=== PATIENT | female | born 1960 | race Caucasian/White ===

== ENCOUNTER → 2020-04-30 | Outpatient (CLI) | payer OTHER ==
[~2020-04-30] MED LIST: COVID-19 VACC, MRNA(MODERNA)/PF 100 MCG/0.5 ML VIAL IM ONE
== END ==
LOC: VACCPMC 16:15
DX: Z23 Encounter for immunization (principal); Z20.822 Contact with and (suspected) exposure to COVID-19

== ENCOUNTER → 2020-05-29 | Outpatient (CLI) | payer OTHER | LOC: VACCPMC 09:36 | DX: Z23 Encounter for immunization (principal); Z20.822 Contact with and (suspected) exposure to COVID-19 | CPT/HCPCS: 0012A; 91301 ==

== ENCOUNTER 2021-06-21 18:05 | Observation (INO) | payer BC, OTHER ==
[~2021-06-21] VITALS: Ht 162.6 cm; Wt 136.1 kg
[2021-06-21 18:39] LABS: BASOPHILS # (AUTO) 0.1 (0.0-0.1); BASOPHILS % 0.8 % (0.0-1.0); EOSINOPHILS # (AUTO) 0.2 (0.0-0.4); EOSINOPHILS % 2.4 % (0.0-6.0); HEMATOCRIT 46.2 % (34.2-44.1); LYMPHOCYTES # (AUTO) 2.2 (1.0-3.2); LYMPHOCYTES % 33.8 % (18.0-39.1); MEAN CORPUSCULAR HEMOGLOBIN 30.3 pg (28-32); MEAN CORPUSCULAR HGB CONC 32.5 g/dL (31-35); MEAN CORPUSCULAR VOLUME 93.3 fL (81-99); MONOCYTES # (AUTO) 0.7 (0.2-0.8); MONOCYTES % 11.3 % (4.4-11.3); NEUTROPHILS # (AUTO) 3.4 (2.1-6.9); NEUTROPHILS % 51.4 % (38.7-80.0); PLATELET COUNT 213 x10e3/uL (140-360); RED BLOOD COUNT 4.95 x10e6/uL (3.6-5.1); RED CELL DISTRIBUTION WIDTH 13.9 % (11.7-14.4)
[2021-06-21 18:57] LABS: ALBUMIN 4.2 g/dL (3.5-5.0); ALBUMIN/GLOBULIN RATIO 1.2 (0.8-2.0); ANION GAP 17.7 mmol/L (8-16); CALCIUM 9.9 mg/dL (8.4-10.2); CREATININE, SERUM 0.74 mg/dL (0.57-1.11); POTASSIUM 3.7 mmol/L (3.5-5.1)
[2021-06-21] MEDS ORDERED: ASPIRIN 81 MG CHEW TAB PO ONE (20:00)
[2021-06-21] MEDS ORDERED: ASPIRIN 81 MG CHEW TAB ONE (20:14)
[2021-06-21] MEDS ORDERED: TRAMADOL HCL 50 MG TAB PO PRN (20:45)
[2021-06-21 20:48] VITALS: BP 141/93
[2021-06-21 21:00] VITALS: BP 141/93
[2021-06-21 22:29] LABS: CREATINE KINASE 62 IU/L (29-168)
[2021-06-21] MEDS ORDERED: AMBIEN10 MG PO (22:50)
[2021-06-21] MEDS ORDERED: HYDROCHLOROTHIA25 MG (22:50)
[2021-06-21] MEDS ORDERED: MELOXICAM15 MG PO (22:50)
[2021-06-21] MEDS ORDERED: LISINOPRIL10 MG PO (22:50)
[2021-06-21] MEDS ORDERED: FENOFIBRATE160 MG PO (22:50)
[2021-06-21] MEDS ORDERED: ZOLPIDEM TARTRATE 10 MG TAB PO SCH (23:00)
[2021-06-22] VITALS (13 sets, daily range): BP systolic 115–161; BP diastolic 46–77
[2021-06-22 06:20] LABS: CREATINE KINASE MB 0.8 ng/mL (0-5.0)
[2021-06-22] MEDS ORDERED: MIDAZOLAM HCL 2 MG/2 ML VIAL ONE ×2 (07:42→07:58)
[2021-06-22] MEDS ORDERED: VERAPAMIL HCL 2.5 MG/ML 2 ML VIAL ONE (07:42)
[2021-06-22] MEDS ORDERED: SODIUM CHLORIDE 0.9% 1000ML 1,000 ML ONE (07:43)
[2021-06-22] MEDS ORDERED: FENTANYL CITRATE/PF 100MCG/2 ML INJ ONE (07:43)
[2021-06-22] MEDS ORDERED: IOPAMIDOL 370 MG/ML 200 ML INFUS..BTL INJ ONE (07:43)
[2021-06-22] MEDS ORDERED: LIDOCAINE HCL 2% LOCAL 20 ML VIAL ONE (07:43)
[2021-06-22] MEDS ORDERED: HEPARIN SOD/SOD CHLORIDE 2,000 ML ONE (07:43)
[2021-06-22] MEDS ORDERED: ONDANSETRON HCL INJ 2MG/ML 2ML 2 MG/ML VIAL IV PRN (08:00)
[2021-06-22] MEDS ORDERED: ACETAMINOPHEN 325 MG TAB PO PRN (08:00)
[2021-06-22] MEDS ORDERED: Morphine 2mg Syringe 2 MG/ML SYR IV PRN (08:00)
[2021-06-22] MEDS ORDERED: ZOLPIDEM TARTRATE 5 MG TAB PO PRN (08:00)
[2021-06-22] MEDS ORDERED: HYDROCODONE/APAP 5MG-325MG TAB PO PRN (08:00)
[2021-06-22] MEDS ORDERED: Morphine 4mg Syringe 4 MG/ML INJ IV PRN (08:00)
[2021-06-22] MEDS: SODIUM CHLORIDE 0.9% 1000ML 1,000 ML IV SCH ×2 (08:30→12:30)
[2021-06-22] MEDS: LISINOPRIL 20 MG TAB PO SCH ×2 (09:00→13:59)
[2021-06-22] MEDS: FENOFIBRATE 145 MG TAB PO SCH ×2 (09:00→14:00)
[2021-06-22 13:49] LABS: CREATINE KINASE 47 IU/L (29-168)
[2021-06-22] MEDS ORDERED: ONDANSETRON HCL 4 MG ORAL DISINTEGRATING TAB PO PRN (16:30)
== END 2021-06-22 16:00 | disposition home or self-care (01) ==
LOC: ER 18:16 → ERHOLD 19:26 → MED/SURG 20:52
PROVIDERS: ADMIT Internal Medicine; ATTEND Internal Medicine
DX: I25.110 Atherosclerotic heart disease of native coronary artery with unstable angina pectoris (principal); Z20.822 Contact with and (suspected) exposure to COVID-19; I10 Essential (primary) hypertension; F17.210 Nicotine dependence, cigarettes, uncomplicated; E78.5 Hyperlipidemia, unspecified; E66.01 Morbid (severe) obesity due to excess calories; Z68.43 Body mass index [BMI] 50.0-59.9, adult
CPT/HCPCS: 36415 ×2; 71045; 80053; 82550 ×2; 82553 ×2; 83880; 84484 ×2; 85025; 93005; 93306; 93458; 94799 ×2; 99284; C1887; C1894; G0378 ×2; J2001; J2250; J3010; J7030; Q9967; U0002; 93454; 99152